=== PATIENT | female | born 1945 | race Two or more races ===

== ENCOUNTER → 2018-05-21 | Outpatient (CLI) | payer OTHER ==
[~2018-05-21] MED LIST: HYZAAR 100-121 UDTAB; IOPHEN DM-100 MG/5 M PO; ISOSORBIDE DINI30 MG; LANTUS100 U/ML; LEVAQUIN750 MG PO; NEURONTIN300 MG; PLETAL100 MG; ZOCOR40 MG
== END | disposition home or self-care (01) ==
LOC: NUCLEAR 10:00
DX: M81.0 Age-related osteoporosis without current pathological fracture (principal)

== ENCOUNTER → 2018-05-21 | Outpatient (CLI) | payer OTHER | END | disposition home or self-care (01) | LOC: MAMO-SONO 09:15 | DX: Z12.31 Encounter for screening mammogram for malignant neoplasm of breast (principal); Z87.898 Personal history of other specified conditions; N64.89 Other specified disorders of breast ==

== ENCOUNTER 2019-05-27 08:52 | Outpatient (CLI) | payer OTHER | END 2019-05-27 09:01 | disposition home or self-care (01) | LOC: MAMO-SONO 08:52 | DX: Z12.31 Encounter for screening mammogram for malignant neoplasm of breast (principal); Z87.898 Personal history of other specified conditions; N60.11 Diffuse cystic mastopathy of right breast; N60.12 Diffuse cystic mastopathy of left breast ==

== ENCOUNTER 2020-07-11 15:10 | Outpatient (CLI) | payer OTHER | END 2020-07-11 15:13 | disposition home or self-care (01) | LOC: NUCLEAR 15:10 | PROVIDERS: ATTEND Internal Medicine Cardiovascular Disease | DX: M81.0 Age-related osteoporosis without current pathological fracture (principal); E55.9 Vitamin D deficiency, unspecified ==

== ENCOUNTER 2020-07-26 13:53 | Outpatient (CLI) | payer OTHER | END 2020-07-26 14:00 | disposition home or self-care (01) | LOC: MAMO-SONO 13:53 | PROVIDERS: ATTEND Obstetrics & Gynecology | DX: Z12.31 Encounter for screening mammogram for malignant neoplasm of breast (principal); N60.11 Diffuse cystic mastopathy of right breast; N60.12 Diffuse cystic mastopathy of left breast ==

== ENCOUNTER 2021-09-20 08:43 | Outpatient (CLI) | payer OTHER | END 2021-09-20 08:46 | disposition home or self-care (01) | LOC: MAMO-SONO 08:43 | PROVIDERS: ATTEND Student in an Organized Health Care Education/Training Program | DX: Z12.31 Encounter for screening mammogram for malignant neoplasm of breast (principal); N60.11 Diffuse cystic mastopathy of right breast; N60.12 Diffuse cystic mastopathy of left breast ==